=== PATIENT | male | born 1955 | race Caucasian/White ===

== ENCOUNTER 2021-12-17 16:31 | Outpatient (CLI) | payer OTHER, SELFPAY ==
[2021-12-17 16:53] LABS: Basophils Absolute Auto 0.04 K/uL (0.00-0.30); Basophils Percent Auto 0.5 % (0.0-3.0); Hematocrit 39.7 % (37.0-53.0); Hemoglobin* 13.3 gm/dL (13.5-17.5); Immature Granulocytes Abs Auto 0.01 K/uL (0.00-0.30); Immature Granulocytes Pct Auto 0.1 %; Lymphocytes Percent Auto 43.9 % (20-44); Mean Corpuscular HGB Conc 34 gm/dL (32-36); Mean Corpuscular Hemoglobin 28 pg (26-34); Mean Corpuscular Volume 82 fL (80-100); Monocytes Absolute Auto 0.62 K/UL (0.00-0.90); Monocytes Percent Auto 8.4 % (0.0-11.0); Neutrophils Absolute Auto 3.45 K/uL (1.7-7.0); Neutrophils Percent Auto 47.1 % (42.0-72.0); Platelet Count* 160 K/uL (140-440); RDW Coefficient of Variation % 14.6 % (11.5-15.5); Red Blood Count 4.84 m/uL (4.30-5.90); White Blood Count* 7.35 K/uL (4.50-11.00)
[2021-12-17 17:17] LABS: Slide Review Reflex Yes
[2021-12-17 17:18] LABS: Slide Review Acceptable Review (Acceptable)
[2021-12-17 17:59] LABS: Albumin* 3.6 g/dL (3.3-5.0); Chloride* 100 mmol/L (96-114); Potassium* 3.8 mmol/L (3.6-5.1); Sodium* 133 mmol/L (135-149)
[2021-12-17 18:01] LABS: Creatinine* 1.3 mg/dL (0.5-1.5); Estimated Glomerular Filt Rate 60.21; Lipase* 153 U/L (23-300)
[2021-12-17 18:02] LABS: Alanine Aminotransferase* 112 U/L (4-50); Alkaline Phosphatase* 60 U/L (40-150); Aspartate Amino Transferase* 64 U/L (12-35); Bilirubin Total* 1.2 mg/dL (0.1-1.5); Blood Urea Nitrogen* 23 mg/dL (7-30); Carbon Dioxide* 24 mmol/L (20-32); Total Protein* 6.1 g/dL (6.0-8.3)
[2021-12-17 18:03] LABS: Calcium* 8.7 mg/dL (8.4-10.6); Glucose* 129 mg/dL (60-115)
[2021-12-17 18:51] LABS: C Reactive Protein* 16.9 mg/dL (0.5-1.0)
[2021-12-18 14:08] LABS: Mono Screen* Negative (Negative)
[2021-12-24 09:32] LABS: Tissue Transglutaminase IgA 2 U/mL (0-3)
[2021-12-24 19:15] LABS: Deamidated Gliadin Peptide IgA 11 Units (0-19)
[2021-12-25 18:32] LABS: Deamidated Gliadin Peptide IgG 2 Units (0-19)
[2021-12-25 18:33] LABS: Tissue Transglutaminase IgG 3 U/mL (0-5)
== END 2021-12-17 16:32 | disposition home or self-care (01) ==
PROVIDERS: PCP Family Medicine; Visit Provider Family Medicine
DX: R50.9 Fever, unspecified (principal); K76.89 Other specified diseases of liver; N28.1 Cyst of kidney, acquired; R16.1 Splenomegaly, not elsewhere classified; K21.9 Gastro-esophageal reflux disease without esophagitis; R11.0 Nausea
CPT/HCPCS: 80053; 83690; 85025; 86140; 86308

== ENCOUNTER 2021-12-19 09:15 | Outpatient (CLI) | payer OTHER, SELFPAY ==
--- NOTE | 2021-12-19 10:00 | CRLHL7_ITS ---
For Patients: As a result of the Century Cures Act, medical imaging exams and procedure reports are released immediately into your electronic medical record. You may view this report before your referring provider. If you have questions, please contact your health care provider. Indication: ABDOMEN PAIN, ELEVATED LFTS NAUSEA. Technique: Postcontrast CT abdomen and pelvis. Oral water. 100 cc Omnipaque 370 intravenous contrast. Please note that all CT scans at this facility use dose modulation, iterative reconstruction, and/or weight-based dosing when appropriate to reduce radiation dose to as low as reasonably achievable. Comparison: None Findings: Mild dependent atelectasis/scarring within both lower lobes. No pleural effusion. Multiple benign simple intrahepatic cysts are present which measure up to 2.3 cm. The spleen is mildly prominent measuring 14 cm. The liver is not enlarged. Normal pancreas. Gallbladder normal. No biliary duct dilation. Multiple simple water attenuation cysts are present regarding both kidneys measuring up to 6.4 cm. There is a mildly complex cyst arising from the upper pole of the right kidney measuring 1.4 cm, series 4, image 60. No hydronephrosis or renal stone. No perinephric stranding. Incidental retro aortic left renal vein. No retroperitoneal adenopathy. No mesenteric adenopathy. Mild ectasia of the abdominal aorta without aneurysm. Bladder is incompletely distended. Prostate is not particularly enlarged. No bowel obstruction or free air. No free fluid. No abscess. No bowel wall thickening appendix normal. No fracture. No pelvic or inguinal adenopathy. Impression: Mild splenomegaly. Multiple incidental simple hepatic cysts and simple renal cysts. Mildly complex cyst upper pole right kidney measuring 1.4 cm. Ultrasound recommended for further evaluation of this finding. No bowel obstruction or inflammatory change. Please note that all CT scans at this facility use dose modulation, iterative reconstruction, and/or weight-based dosing when appropriate to reduce radiation dose to as low as reasonably achievable. Dictated by Thai Ricci MD @ 12/19/2021 11:45:19 AM (Electronically Signed)
== END 2021-12-19 09:16 | disposition home or self-care (01) ==
LOC: CT 09:18
PROVIDERS: PCP Family Medicine; Visit Provider Family Medicine
DX: R10.9 Unspecified abdominal pain (principal); R16.1 Splenomegaly, not elsewhere classified; K76.89 Other specified diseases of liver; R50.9 Fever, unspecified; R11.0 Nausea; R79.82 Elevated C-reactive protein (CRP); R79.89 Other specified abnormal findings of blood chemistry
CPT/HCPCS: 74177; Q9967

== ENCOUNTER 2022-01-14 08:35 | Outpatient (CLI) | payer OTHER, SELFPAY ==
--- NOTE | 2022-01-14 08:45 | CRLHL7_ITS ---
For Patients: As a result of the Century Cures Act, medical imaging exams and procedure reports are released immediately into your electronic medical record. You may view this report before your referring provider. If you have questions, please contact your health care provider. CLINICAL HISTORY: CYST OF KIDNEY SEEN ON CT COMPARISON: CT 12/19/2021 TECHNIQUE: Monroy scale and color Doppler images were acquired of the kidneys and urinary bladder. FINDINGS: Multiple simple anechoic cysts are present within both kidneys, the largest measures 5.2 x 4.4 x 4.8 cm. A small exophytic cyst arises from the upper pole of the right kidney measuring 1.3 cm [address] the CT. No suspicious renal lesions. There is no evidence of hydronephrosis, solid mass or calculus. The right kidney measures 11.1cm in length and the left kidney measures 12.4cm in length. The renal cortex appears of normal thickness. Normal color Doppler flow to both kidneys. The urinary bladder appears normal. Prevoid bladder volume 59 cc. Postvoid bladder volume 18 cc. There is no evidence of bladder calculi or diverticula. IMPRESSION: Multiple bilateral simple renal cysts. No suspicious renal mass. Dictated by Thai Ricci MD @ 01/14/2022 10:22:37 AM (Electronically Signed)
== END 2022-01-14 08:36 | disposition home or self-care (01) ==
PROVIDERS: PCP Family Medicine; Visit Provider Family Medicine
DX: N28.1 Cyst of kidney, acquired (principal)
CPT/HCPCS: 76775

== ENCOUNTER 2022-07-27 10:41 | Outpatient (CLI) | payer OTHER, SELFPAY ==
[2022-07-27 10:14] LABS: Albumin* 4.1 g/dL (3.3-5.0)
[2022-07-27 10:15] LABS: Chloride* 102 mmol/L (96-114); Potassium* 3.7 mmol/L (3.6-5.1); Sodium* 137 mmol/L (135-149)
[2022-07-27 10:17] LABS: Alkaline Phosphatase* 48 U/L (40-150); Aspartate Amino Transferase* 26 U/L (12-35); Blood Urea Nitrogen* 10 mg/dL (7-30); Carbon Dioxide* 31 mmol/L (20-32); Cholesterol* 235 mg/dL (90-199); Estimated Glomerular Filt Rate 82 ml/min; Total Protein* 6.8 g/dL (6.0-8.3)
[2022-07-27 10:18] LABS: Alanine Aminotransferase* 18 U/L (4-50); Calcium* 9.1 mg/dL (8.4-10.6); Glucose* 89 mg/dL (60-115); HDL Cholesterol* 77 mg/dL (>=40); LDL Cholesterol Calculated 140 mg/dL (<100); Triglycerides* 92 mg/dL (40-149)
[2022-07-27 10:51] LABS: PSA Screen* 0.41 ng/mL (0.10-4.00)
== END 2022-07-27 10:42 | disposition home or self-care (01) ==
PROVIDERS: PCP Family Medicine; Visit Provider Family Medicine
DX: D64.9 Anemia, unspecified (principal); E78.5 Hyperlipidemia, unspecified; I10 Essential (primary) hypertension; Z12.5 Encounter for screening for malignant neoplasm of prostate
CPT/HCPCS: 80053; 80061; 84153

== ENCOUNTER 2023-11-03 07:31 | Outpatient (CLI) | payer MEDICARE, BC, SELFPAY ==
--- OUTSIDE RECORDS SUMMARY | 2023-11-23 10:02 | XMS_ITS | Clinical Summary ---
Author Organization [facility] Address [place], [place] [address] Care Team Providers Care Computer Engineer Name Role Phone Xochilt Smith MD Primary Care Provider + Allergies Active Allergy Reactions Criticality Noted Date Comments Aspirin Other - Describe In Comment Field 09/24/2010 Heartburn Atenolol Other - Describe In Comment Field 01/13/2008 Fatigue Hymenoptera Allergenic Extract 10/28/2007 Hornet Venom Anaphylaxis High 10/06/2008 Esomeprazole Magnesium *Unknown 05/27/2016 dizzy Penicillins 10/28/2007 Venom-Wasp Anaphylaxis High 10/06/2008 Medications Medication Sig Dispensed Refills Start Date End Date Status omega-3 fatty acids-vitamin E (FISH OIL) 1,000 mg cap Take by mouth. 0 02/19/2012 Active lisinopril (PRINIVIL; ZESTRIL) 40 mg tablet Take 1 tablet by mouth once daily. Fill at patient request. 90 tablet 3 03/31/2013 Active EPIPEN 2-HARIS 0.3 mg/0.3 mL (1:1,000) injection INJECT 0.3MG INTRAMUSCULARLY 1 TIME FOR 1 DOSE 2 Each 1 12/07/2013 Active amLODIPine (NORVASC) 10 mg tabletIndications: Unspecified essential hypertension TAKE ONE TABLET DAILY 30 tablet 0 05/05/2014 Active lansoprazole (PREVACID) 30 mg capsule Take 1 capsule by mouth once daily. 0 05/27/2016 Active medication order composer Beta TCP daily Vitamin D 3 2500 IU daily [place]cen Trace Mineral Drops daily Vitamin B Complex daily ProtoGenx Lymph Care daily ProtoGenx Adrenal Revive daily Magnesium (Pure Ecncapsulations) DGL Licorice root extract daily Gamma E complex daily Genophasic 2-H daily 0 05/27/2016 Active metoprolol succinate (TOPROL XL) 25 mg Sustained-Release tablet 03/25/2021 Active rosuvastatin (CRESTOR) 5 mg tablet 03/19/2021 Active Active Problems Problem Noted Date Diagnosed Date GERD (gastroesophageal reflux disease) 1 Family history of other cardiovascular diseases( V17.49) 08/15/2010 Vitamin D deficiency 07/08/2009 Screen for colon cancer 05/30/2009 Overview: Colonoscopy 05/2009 normal repeat in 10 years Unspecified essential hypertension Resolved Problems Problem Noted Date Diagnosed Date Resolved Date Thrombocytopenia, unspecified 09/29/2010 10/23/2011 Immunizations Name Administration Dates Next Due Oral Polio Vaccine 08/09/1996 Td (Age >=7 Years) 10/13/1995 Family History Medical History Relation Name Comments Heart Disease Father pacer Hyperlipidemia Father Hypertension Father Stroke Father Diabetes Mother diet controlled Heart Disease Mother stent, angiopl asty. started age late 60s Cancer Paternal Grandfather probabl e leukemia Relation Name Status Comments Father Alive Mother Alive Paternal Grandfather Social History Tobacco Use Types Packs/Day Years Used Date Smoking Tobacco: Former Cigarettes Q uit: 06/14/1997 Smokeless Tobacco: Never Tobacco Cessation:Counseling Given: Yes Alcohol Use Standard Drinks/Week Comments Yes 0 (1 standard drink = 0.6 oz pur e alcohol) occas Sex and Gender Information Value Date Recorded Sex Assigned at Not on file Gender Identity Not on file Sexual Orientation Not on file Obstetrics History Last Filed Vital Signs Vital Sign Reading Time Taken Comments Blood Pressure 155/87 08/11/2021 2:44 PM TIMBER MANAGEMENT PROFESSOR Pulse 87 08/11/2021 2:44 PM TIMBER MANAGEMENT PROFESSOR Temperature 37.1 ??C (98.8 ??F) 03/31/2013 8 :32 AM CDT Respiratory Rate 18 08/11/2021 2:44 PM TIMBER MANAGEMENT PROFESSOR Oxygen Saturation 96% 08/11/2021 2:4 4 PM TIMBER MANAGEMENT PROFESSOR Inhaled Oxygen Concentration - - Weight 107 kg (235 lb 12.8 oz) 08/11/2021 2:44 PM TIMBER MANAGEMENT PROFESSOR Pt weighed with shoes on. Height 175 cm (5' 8.9) 05/27/2016 2:23 PM TIMBER MANAGEMENT PROFESSOR Body Mass Index 34.92 05/27/2016 2:23 PM TIMBER MANAGEMENT PROFESSOR Plan of Treatment Health Maintenance Due Date Last Done Comments Tdap 1965 Depression screening for age 12+ 1966 Hepatitis C screening for ag e 18-79 1972 Zoster (shingles) series for age 50+ (1 of 2) 2004 Tetanus booster 10/12/2005 10/13/1995 BMI (ht and wt on same day) for age 18+ 05/27/2017 05/27/2016 Lipids for age 45-75 03/17/2018 03/17/2013, 10/23/2011, 09/29/2010, Additional history exists Pneumococcal series for age 65+ (1 of 1 - PCV) 2019 Colonoscopy through age 75 05/30/2019 05/30/2009, COVID-19 vaccine series (2022- season) 2023 05/06/2021, 09/17/2020, 08/27/2020 Influenza for age 65+ 02/13/2024 Procedures Procedure Name Priority Date/Time Associated Diagnosis Comments LIPID PANEL W REFLEX MEASURED LDL Routine 03/17/2013 8:27 AM CDT Hyperlipidemia from Last 3 Months or Most Recently Relevant to Health Maintenance Results * (ABNORMAL) LIPID PANEL W REFLEX MEASURED LDL (03/17/2013 8:27 AM CDT) CHOLESTEROL,TOTAL 249(H) 100 - 199 mg/dL 03/17/2013 9:03 AM [facility] TRIGLYCERIDES 85 <150 mg/dL 03/17/2013 9:03 AM [facility] HDL CHOLESTEROL 70 >40 mg/dL 3 9:03 AM [facility] NON-HDL CHOLESTEROL 179(H) <145 mg/dl 03/17/2013 9:03 AM [facility] CHOL/HDL RATIO 3.56 <4.50 03/17/2013 9:03 AM [facility] LDL CHOLESTEROL 162(H) <=130 mg/dL 03/17/2013 9:03 AM [facility] PATIENT STATUS FASTING 03/17/2013 9:03 AM [facility] Blood specimen (specimen) BLOOD SPECIMEN / Unknown Venipuncture / Unknown 03/17/2013 8:27 AM CDT 03/17/2013 8:27 AM CDT Mina Corrales MD CHEMISTRY [facility] [address] [place] [address] from Last 3 Months or Most Recently Relevant to Health Maintenance Care Teams Computer Engineer Relationship Specialty Start Date End Date Xochilt Smith MD [address] [place] [address] PCP - General Family Practice 05/27/16
== END 2023-11-03 07:32 | disposition home or self-care (01) ==
LOC: NFLDREF 11-23 10:00
PROVIDERS: PCP Family Medicine; Referring Provider Family Medicine; Visit Provider Family Medicine
DX: E78.5 Hyperlipidemia, unspecified (principal); I10 Essential (primary) hypertension; Z12.5 Encounter for screening for malignant neoplasm of prostate
CPT/HCPCS: 80053; 80061; 84153

== ENCOUNTER 2024-07-17 08:12 | Outpatient (CLI) | payer MEDICARE, BC, SELFPAY ==
[2024-07-17 11:25] LABS: Basophils Absolute Auto 0.03 K/uL (0.00-0.30); Basophils Percent Auto 0.4 % (0.0-3.0); Eosinophils Absolute Auto 0.15 K/uL (0.00-0.50); Eosinophils Percent Auto 2.2 % (0.0-7.0); Hematocrit 45.7 % (37.0-53.0); Hemoglobin* 14.9 gm/dL (13.5-17.5); Immature Granulocytes Abs Auto 0.01 K/uL (0.00-0.30); Immature Granulocytes Pct Auto 0.1 %; Immature Reticulocyte Fraction 5.6 % (2.3-13.4); Lymphocytes Absolute Auto 1.99 K/uL (0.90-2.90); Lymphocytes Percent Auto 29.7 % (20-44); Mean Corpuscular HGB Conc 33 gm/dL (32-36); Mean Corpuscular Hemoglobin 28 pg (26-34); Mean Corpuscular Volume 87 fL (80-100); Monocytes Percent Auto 8.7 % (0.0-11.0); Neutrophils Absolute Auto 3.93 K/uL (1.7-7.0); Neutrophils Percent Auto 58.9 % (42.0-72.0); Platelet Count* 91 K/uL (140-440); RDW Coefficient of Variation % 13.5 % (11.5-15.5); Red Blood Count 5.26 m/uL (4.30-5.90); Reticulocyte Hemoglobin Equivi 30.4 pg (29.0-35.0); Reticulocyte Percent 1.1 % (0.5-2.0); Reticulocytes Absolute 0.06 # (0.03-0.08); White Blood Count* 6.69 K/uL (4.50-11.00)
[2024-07-17 11:41] LABS: Slide Review Reflex No
== END 2024-07-17 08:13 | disposition home or self-care (01) ==
PROVIDERS: PCP Family Medicine; Visit Provider Family Medicine
DX: D69.6 Thrombocytopenia, unspecified (principal)
CPT/HCPCS: 36415; 85025; 85045

== ENCOUNTER 2024-07-26 07:48 | Outpatient (CLI) | payer MEDICARE, BC, SELFPAY ==
[2024-07-26 08:04] LABS: Basophils Absolute Auto 0.03 K/uL (0.00-0.30); Basophils Percent Auto 0.5 % (0.0-3.0); Eosinophils Absolute Auto 0.15 K/uL (0.00-0.50); Eosinophils Percent Auto 2.3 % (0.0-7.0); Hematocrit 46.8 % (37.0-53.0); Hemoglobin* 15.2 gm/dL (13.5-17.5); Lymphocytes Absolute Auto 2.07 K/uL (0.90-2.90); Lymphocytes Percent Auto 32.3 % (20-44); Mean Corpuscular HGB Conc 33 gm/dL (32-36); Mean Corpuscular Hemoglobin 28 pg (26-34); Mean Corpuscular Volume 87 fL (80-100); Monocytes Percent Auto 10.3 % (0.0-11.0); Neutrophils Absolute Auto 3.49 K/uL (1.7-7.0); Neutrophils Percent Auto 54.6 % (42.0-72.0); Platelet Count* 201 K/uL (140-440); RDW Coefficient of Variation % 13.3 % (11.5-15.5); Red Blood Count 5.38 m/uL (4.30-5.90)
[2024-07-26 08:07] LABS: Slide Review Reflex No
== END 2024-07-26 07:49 | disposition home or self-care (01) ==
LOC: LAB 07:49
PROVIDERS: PCP Family Medicine; Visit Provider Family Medicine
DX: D69.6 Thrombocytopenia, unspecified (principal)
CPT/HCPCS: 36415; 85025

== ENCOUNTER 2024-09-21 07:13 | Outpatient (CLI) | payer MEDICARE, BC, SELFPAY ==
--- NOTE | 2024-09-21 08:32 | P.ANES_ITS ---
Anesthesia Charges Start Date/Time Anesthesia Start Date: 09/21/24 Anesthesia Start Time: 08:02 Stop Date/Time Anesthesia Stop Date: 09/21/24 Anesthesia Stop Time: 08:29 Summary Extremes of Age - Over 70 or under 1: FINANCIAL SALES ASSOCIATE Coding CPT Codes CPT Codes: TOSIN LWR INTST SCR COLSC - 32781 ([id number]) P2 - PATIENT W/MILD SYST DISEASE, QZ - FINANCIAL SALES ASSOCIATE SVC W/O SALESPERSON WOMEN'S DRESSES BY Additional Codes: Summary - Extremes of Age - Over 70 or under 1: FINANCIAL SALES ASSOCIATE ([id number])
--- NOTE | 2024-09-21 08:32 | W.ANESCHARGE ---
Anesthesia Charges Start Date/Time Anesthesia Start Date: 09/21/24 Anesthesia Start Time: 08:02 Stop Date/Time Anesthesia Stop Date: 09/21/24 Anesthesia Stop Time: 08:29 Summary Extremes of Age - Over 70 or under 1: AUTOMOBILE MECHANIC MOTOR Coding CPT Codes CPT Codes: TOSIN LWR INTST SCR COLSC - 98486 ([id number]) P2 - PATIENT W/MILD SYST DISEASE, QZ - AUTOMOBILE MECHANIC MOTOR SVC W/O REGENERATOR OPERATOR BY Additional Codes: Summary - Extremes of Age - Over 70 or under 1: AUTOMOBILE MECHANIC MOTOR ([id number])
== END 2024-09-21 07:14 | disposition home or self-care (01) ==
LOC: OP CLINIC 07:13
PROVIDERS: PCP Family Medicine; Visit Provider Surgery
DX: Z12.11 Encounter for screening for malignant neoplasm of colon (principal); Z86.0100 Personal history of colon polyps, unspecified
CPT/HCPCS: G0105; 00812; 45378; 99100; J2704

== ENCOUNTER 2024-11-27 08:10 | Outpatient (CLI) | payer MEDICARE, BC, SELFPAY | END 2024-11-27 08:11 | disposition home or self-care (01) | LOC: NFLDREF 12-01 01:24 | PROVIDERS: PCP Family Medicine; Referring Provider Family Medicine; Visit Provider Family Medicine | DX: I10 Essential (primary) hypertension (principal); E78.5 Hyperlipidemia, unspecified; Z12.5 Encounter for screening for malignant neoplasm of prostate | CPT/HCPCS: 80053; 80061; G0103 ==

== ENCOUNTER 2025-05-07 08:15 | Outpatient (CLI) | payer MEDICARE, BC, SELFPAY ==
[2025-05-07 10:01] LABS: Hematocrit* 45.0 % (37.0-53.0); Hemoglobin* 14.8 gm/dL (13.5-17.5); Immature Granulocytes Abs Auto 0.01 K/uL (0.00-0.30); Immature Granulocytes Pct Auto 0.2 %; Lymphocytes Absolute Auto 1.68 K/uL (0.90-2.90); Mean Corpuscular HGB Conc 33 gm/dL (32-36); Mean Corpuscular Hemoglobin 29 pg (26-34); Mean Corpuscular Volume 89 fL (80-100); RDW Coefficient of Variation % 13.3 % (11.5-15.5); Red Blood Count* 5.08 m/uL (4.30-5.90); White Blood Count* 6.09 K/uL (4.50-11.00)
[2025-05-07 10:04] LABS: Slide Review Reflex No
[2025-05-07 10:37] LABS: Albumin* 4.2 g/dL (3.3-5.0); Chloride* 96 mmol/L (96-114)
[2025-05-07 10:38] LABS: Potassium* 3.9 mmol/L (3.6-5.1); Sodium* 136 mmol/L (135-149)
[2025-05-07 10:40] LABS: Alanine Aminotransferase* 17 U/L (4-50); Alkaline Phosphatase* 54 U/L (40-150); Anion Gap 10 mEq/L (7-15); Aspartate Amino Transferase* 27 U/L (12-35); Bilirubin Total* 1.0 mg/dL (0.1-1.5); Blood Urea Nitrogen* 13 mg/dL (7-30); Carbon Dioxide* 30 mmol/L (20-32); Creatinine* 1.0 mg/dL (0.5-1.5); Estimated Glomerular Filt Rate 80 ml/min; Total Protein* 6.6 g/dL (6.0-8.3)
[2025-05-07 10:41] LABS: Calcium* 9.4 mg/dL (8.4-10.6); Gamma Glutamyl Transpeptidase* 17 U/L (8-55); Glucose* 93 mg/dL (60-115)
[2025-05-07 10:52] LABS: Vitamin D 25 Hydroxy* 71 ng/mL (30-80)
[2025-05-07 11:05] LABS: D Dimer Quantitative* < 0.27 ug/ml (0.00-0.50)
[2025-05-08 20:49] LABS: DHEAS 74 ug/dL (34-249)
[2025-05-09 05:28] LABS: Zinc, Serum/Plasma 74.8 ug/dL (60.0-120.0)
[2025-05-09 09:06] LABS: Cortisol, Serum 10.7 ug/dL; Testosterone, Adult Male 991 ng/dL (300-720); Testosterone, Free Calculation 143 pg/mL (47-244); Testosterone, Percentage Free 1.4 % (1.6-2.9)
[2025-05-09 09:19] LABS: CRP, High Sensitivity 4.9 mg/L (<=3.0)
== END 2025-05-07 08:16 | disposition home or self-care (01) ==
LOC: NPINS 08:17
PROVIDERS: PCP Family Medicine; Visit Provider Family Medicine
DX: M79.18 Myalgia, other site (principal); M25.50 Pain in unspecified joint; E72.11 Homocystinuria; R53.83 Other fatigue; U09.9 Post COVID-19 condition, unspecified
CPT/HCPCS: 80053; 82306; 82533; 82627; 82670; 82728; 82977; 83036; 83090; 83525; 84270; 84402; 84403; 84550; 84630; 85025; 85379; 85384; 86141